=== PATIENT | male | born 1955 | race Caucasian/White ===

== ENCOUNTER 2017-07-20 23:48 | Inpatient (IN) ==
--- NOTE | 2017-07-21 00:02 | Emergency Department Report ---
General Adult HPI - General Stated complaint: numbness around mouth Time Seen by Provider: 07/21/17 00:01 Source: patient, family Mode of arrival: ambulatory Limitations: no limitations - History of Present Illness HPI narrative: 62-year-old male presents to the emergency department with a chief complaint of tingling in the left side of his face. Patient noted onset of symptoms earlier today prior to arrival to the emergency department. Exact time of onset is unknown. Patient has been experiencing tingling/numbness in his left upper extremity last Monday which has resolved. Patient had been asymptomatic since then. Patient did have an MRI of his head performed by his primary care physician on 07/18/2017 which did show a potential ischemic injury. Patient was never hospitalized. Denies any current pain or discomfort. Symptoms have resolved prior to arrival to the emergency department. No other complaints or associated symptoms. He was at home when the symptoms began. - Related Data Home Medications Medication Instructions Recorded Confirmed Fish Oil/[place]-3 Fatty Acids (Fish 1 cap PO DAILY #0 11/10/11 07/21/17 Oil 1,000 Mg Capsule) Saw [place] 80 mg PO DAILY #0 11/10/11 07/21/17 Previous Rx's Medication Instructions Recorded Prilosec (Omeprazole) 20 mg 20 mg PO DAILY #60 cap 05/12/17 capsule,delayed release apixaban (Eliquis)5 mg tablet 5 mg PO BID #60 tab 05/12/17 Wellbutrin XL (bupropion HCl XL) 150 mg PO QAM #90 tab 06/20/17 150 mg 24 hr tablet Cipro (ciprofloxacin) 500 mg tablet 500 mg PO Q12H #60 tab 06/26/17 Lipitor (atorvastatin) 20 mg tablet 20 mg PO DAILY #30 tab 07/17/17 Zestoretic (lisinopril 20 1 tab PO DAILY #90 tab 07/17/17 mg-hydrochlorothiazide 25 mg) tablet aspirin 81 mg tablet,delayed 81 mg PO DAILY #30 tab 07/17/17 release metoprolol tartrate 25 mg tablet 25 mg PO BID #60 tab 07/19/17 Allergies Allergy/AdvReac Type Severity Reaction Status Date / Time No Known Allergies Allergy Unverified 07/17/17 15:24 Review of Systems Constitutional: Denies: fever, chills Eyes: Denies: eye pain, vision change ENT: Denies: ear pain, throat pain Cardiovascular: Denies: chest pain, palpitations Respiratory: Denies: cough, dyspnea Gastrointestinal: Denies: abdominal pain, nausea, vomiting, diarrhea Genitourinary: Denies: urgency, dysuria Musculoskeletal: Denies: back pain, arthralgia Integumentary: Denies: erythema, rash Neurological: Reports: paresthesias (resolved). Denies: headache, numbness Psychiatric: Denies: anxiety, depression Endocrine: Denies: fatigue, heat or cold intolerance Hematological/Lymphatic: Denies: easy bruising, lymphadenopathy Allergic/Immunologic: Denies: urticaria, itchy eyes PFSH Patient Stated Medical History Transient Ischemic Attacks ( Yes TIA) Hypertension Yes Gastroesophageal Reflux Yes Disease Clotting Problems Yes: blood clot , on eloquis Osteoarthritis Yes Depression Yes Clinic Medical History (Last Updated 06/20/17 @ 08:47 by Shahla Mason APRN ) Peripheral neuropathy (Chronic Medical) LLE Recurrent deep vein thrombosis of left lower extremity (Chronic Medical) Benign hypertension (Chronic Medical) Dysthymia (Chronic Medical) Depression (Chronic Medical) GERD (gastroesophageal reflux disease) (Chronic Medical) DVT (deep venous thrombosis) (Resolved Medical) Left calcaneal fracture (Resolved Medical) Surgical History: Fracture repair left heel Family History: Family History (Last Reviewed 05/12/17 @ 11:20 by CATHRYN Devine) Mother , Age 64 Cancer Sister HIV (human immunodeficiency virus infection) Paternal Uncle , Commited suicide No problems noted. - Social History Smoking status: Never smoker Substance use type: does not use Alcohol intake frequency: does not drink Physical Exam - Limitations Limitations: no limitations - General General appearance: alert, in no apparent distress - Normal Exams: Head:: Normocephalic without trauma Eyes:: Pupils are PERRLA w/ EOMI, No scleral icterus, irritation, or foreign bodies noted ENMT:: No facial trauma, nasal exudates, pharyngeal erythema, or exudates are noted Dental: No fractured, loose, or missing teeth noted Neck:: Full range of motion, without adenopathy, JVD, bruits or thyromegaly Chest/Respirations:: Clear all rodriguez, with good airflow, and symmetry bilaterally Cardiovascular:: Regular rate and rhythm, without murmur or gallop, Pulses 2+ all extremities, capillary refill, <2 seconds all extremities Abdomen:: Bowel sounds positive, soft, non-tender, non-distended, no hepatosplenomegaly, masses or bruits noted Lymphatic:: No lymphadenopathy, or lymphedema noted Musculoskeletal:: No tenderness, or deformity noted, good range of motion, all extremities Integumentary:: No rashes, hives, or bruising noted, hair and nails, without abnormality Neurological:: Patient is alert (Alert and oriented 3. CN 2-12 intact. Normal strength. Normal motor. Normal coordination. Normal speech. Normal sensation. Reflexes 2/4 in all extremities. Absent Babinski bilaterally. Normal gait. No focal neurologic deficit. Unremarkable neurologic exam.), and oriented, cranial nerves, motor/sensory/cerebellar, exams w/o gross deficits, to observation Psychiatric:: Patient exhibits, appropriate attention, emotion and affect Course Vital Signs Temperature 98.7 F 07/20/17 23:48 Pulse Rate 64 07/20/17 23:48 Respiratory Rate 20 07/20/17 23:48 Blood Pressure 149/87 H 07/20/17 23:48 Pulse Oximetry 98 07/20/17 23:48 Temperature 97.7 F 07/21/17 03:38 Pulse Rate 57 L 07/21/17 03:38 Respiratory Rate 18 07/21/17 03:38 Blood Pressure 123/73 07/21/17 03:38 Pulse Oximetry 97 07/21/17 03:38 Medical Decision Making - [facility] Narrative Medical decision making narrative: Labs / imaging were discussed in detail with the patient and questions are answered. Patient is currently anticoagulated on Xarelto has taken a baby aspirin today. Patient is discussed with neurology on-call Dr. Tatum who recommends admission to the hospitalist service and consultation with neurology. Patient is in agreement with the current plan of management. Patient is admitted to the service of the hospitalist after discussion with Dr. Waldrop who agrees to accept the patient to his service. No further orders from accepting or consulting physicians who were in agreement with the current plan of management. Patient is not a TPA candidate as he is anticoagulated and his exact time of onset of symptoms is unknown. He also has a low NIH. No confirmed stroke is present. - Differential Diagnosis TIA, CVA, UTI, Metabolic disorder - Lab Data Result diagrams: 07/21/17 00:38 07/21/17 00:38 Lab Results 07/21/17 07/21/17 07/21/17 Range/Units 00:24 00:38 00:38 WBC 6.8 (4.5-11.0) T/MM3 RBC 5.10 (4.50-5.90) M/MM3 Hgb 15.3 (13.5-17.5) GM/DL Hct 46.5 (41-53) % MCV 91.2 (80-100) UM3 MCH 30.0 (26-34) UUG MCHC 32.9 (31-37) GM/DL RDW Std Deviation 44.6 (36.9-50.2) FL Plt Count 235 (130-400) T/MM3 MPV 9.9 (9.4-12.4) UM3 Immature Gran % (Auto) 0.1 (0.0-0.5) % Neut % (Auto) 43.8 (33-66) % Lymph % (Auto) 41.0 (23-45) % [place] % (Auto) 10.2 H (0-9.0) % Eos % (Auto) 4.0 (0-4) % Baso % (Auto) 0.9 (0-2) % Neut # (Auto) 3.0 (1.8-7.7) T/MM3 Lymph # (Auto) 2.8 (1-4.8) T/MM3 [place] # (Auto) 0.7 (0-0.8) T/MM3 Eos # (Auto) 0.3 (0-0.5) T/MM3 Baso # (Auto) 0.1 (0-0.2) T/MM3 Abs Immat Gran (auto) 0.01 (0.00-0.03) T/MM3 INR 1.24 H (0.99-1.21) APTT 36.7 H (24-36) SEC Turbidity (0-20) Sodium (134-144) MEQ/L Potassium (3.6-5) MEQ/L Chloride (98-107) MEQ/L Carbon Dioxide (22-30) MEQ/L Anion Gap (5-15) MEQ/L BUN (9-20) MG/DL Creatinine (0.8-1.5) MG/DL GFR Calculation BUN/Creatinine Ratio (6-26) RATIO Glucose (75-110) MG/DL Calculated Osmolality (261-280) MOSM/KG Calcium (8.4-10.2) MG/DL Total Bilirubin (0.20-1.30) MG/DL Icterus Index (0-7) AST (17-59) U/L ALT (21-72) U/L Alkaline Phosphatase (38-126) U/L Troponin I (0-0.12) ng/ml Total Protein (6.3-8.2) G/DL Albumin (3.5-5.0) G/DL Globulin (2.4-3.6) G/DL Albumin/Globulin Ratio (1.1-2.2) RATIO Specimen Hemolysis (0-25) Ur Collection Type Urine, void-cc/notcc Urine Color Yellow (YELLOW) Urine Clarity Clear Urine pH 7.0 (5.0-8.0) Ur Specific [place] 1.025 (1.015-1.025) Urine Protein Negative (NEGATIVE) Urine Glucose (UA) Negative (NEGATIVE) Urine Ketones Negative (NEGATIVE) Urine Occult Blood Negative (NEGATIVE) Urine Nitrate Negative (NEGATIVE) Urine Bilirubin Negative (NEGATIVE) Urine Urobilinogen 0.2 (NORMAL) EU/DL Ur Leukocyte Esterase Negative (NEGATIVE) Urinalysis Comment Microscopic not ind. 07/21/17 Range/Units 00:38 WBC (4.5-11.0) T/MM3 RBC (4.50-5.90) M/MM3 Hgb (13.5-17.5) GM/DL Hct (41-53) % MCV (80-100) UM3 MCH (26-34) UUG MCHC (31-37) GM/DL RDW Std Deviation (36.9-50.2) FL Plt Count (130-400) T/MM3 MPV (9.4-12.4) UM3 Immature Gran % (Auto) (0.0-0.5) % Neut % (Auto) (33-66) % Lymph % (Auto) (23-45) % [place] % (Auto) (0-9.0) % Eos % (Auto) (0-4) % Baso % (Auto) (0-2) % Neut # (Auto) (1.8-7.7) T/MM3 Lymph # (Auto) (1-4.8) T/MM3 [place] # (Auto) (0-0.8) T/MM3 Eos # (Auto) (0-0.5) T/MM3 Baso # (Auto) (0-0.2) T/MM3 Abs Immat Gran (auto) (0.00-0.03) T/MM3 INR (0.99-1.21) APTT (24-36) SEC Turbidity < 20 (0-20) Sodium 145 H (134-144) MEQ/L Potassium 3.9 (3.6-5) MEQ/L Chloride 108 H (98-107) MEQ/L Carbon Dioxide 26 (22-30) MEQ/L Anion Gap 11 (5-15) MEQ/L BUN 22.0 H (9-20) MG/DL Creatinine 1.0 (0.8-1.5) MG/DL GFR Calculation 75 BUN/Creatinine Ratio 22 (6-26) RATIO Glucose 118 H (75-110) MG/DL Calculated Osmolality 283 H (261-280) MOSM/KG Calcium 9.4 (8.4-10.2) MG/DL Total Bilirubin 0.50 (0.20-1.30) MG/DL Icterus Index < 2 (0-7) AST 22 (17-59) U/L ALT 27 (21-72) U/L Alkaline Phosphatase 46 (38-126) U/L Troponin I < 0.012 (0-0.12) ng/ml Total Protein 7.1 (6.3-8.2) G/DL Albumin 4.0 (3.5-5.0) G/DL Globulin 3.1 (2.4-3.6) G/DL Albumin/Globulin Ratio 1.3 (1.1-2.2) RATIO Specimen Hemolysis < 15 (0-25) Ur Collection Type Urine Color (YELLOW) Urine Clarity Urine pH (5.0-8.0) Ur Specific [place] (1.015-1.025) Urine Protein (NEGATIVE) Urine Glucose (UA) (NEGATIVE) Urine Ketones (NEGATIVE) Urine Occult Blood (NEGATIVE) Urine Nitrate (NEGATIVE) Urine Bilirubin (NEGATIVE) Urine Urobilinogen (NORMAL) EU/DL Ur Leukocyte Esterase (NEGATIVE) Urinalysis Comment - Radiology Data CXR - No acute processes. CT HEAD - no acute processes. Disposition Clinical Impression: transcient ischemic attack Disposition: To [facility] Acute Care Condition: Stable Time of Disposition: 02:00 (Admit. Dr. Waldrop. ) - Seen By: physician
[2017-07-21] MEDS ORDERED: SALINE FLUSH 10ml SYRINGE IVF PRN (00:23)
[2017-07-21 03:47] VITALS: BMI 27.1
[2017-07-21] MEDS ORDERED: ONDANSETRON 4 MG/2 ML INJECTION IVP PRN (03:55)
[2017-07-21] MEDS ORDERED: ACETAMINOPHEN 325 MG TABLET PO PRN (03:56)
[2017-07-21 04:07] VITALS: O2SAT 97
[2017-07-21] MEDS: MAG-AL + SIM ORAL LIQUID 30ml PO SCH ×2 (04:48→09:39)
--- NOTE | 2017-07-21 05:03 | History & Physical Report ---
History of Present Illness Date: 07/21/17 Chief complaint: left facial numbness HPI: This is a 62 y/o male who 7 days ago had an episode of transient left hand weakness (right handed). he was unable to hold a glass while doing dishes. The patient also had some expressive aphasia. Symptoms lasted briefly (less than 5 minutes) The patient has a history of DVT left leg and is on eliquis for this. The patient contacted his PCP who saw the patient this Monday. An MRI of the brain is reported to have demonstrated a CVA. The patient had aspirin added to his regimen. The patient tonight had onset of paresthesia to the left side of his face. No other neurologic symptoms were described. Again symptoms were transient in nature. In the ED the patient's NIH score is 0. Repeat CT head is unremarkable for an acute process. Neurology was contacted and r/c admission and would see the patient in consult. The patient reports mild headache associated with his symptoms, no vision changes, no difficulty swallowing. no weakness to his arms or legs and no troubles with his balance. The patient has had no fever, chills or sweats, no respiratory sx, no cardiac sx, At this time per neurology r/c the patient is to be admitted locally. Review of Systems All systems PM: 10-point ROS was reviewed, no additional remarkable complaints except Past Medical History Patient Stated Medical History Transient Ischemic Attacks ( Yes TIA) Hypertension Yes Gastroesophageal Reflux Yes Disease Clotting Problems Yes: blood clot , on eloquis Osteoarthritis Yes Depression Yes Clinic Medical History (Last Updated 06/20/17 @ 08:47 by Shahla Mason APRN ) Peripheral neuropathy (Chronic Medical) LLE Recurrent deep vein thrombosis of left lower extremity (Chronic Medical) Benign hypertension (Chronic Medical) Dysthymia (Chronic Medical) Depression (Chronic Medical) GERD (gastroesophageal reflux disease) (Chronic Medical) DVT (deep venous thrombosis) (Resolved Medical) Left calcaneal fracture (Resolved Medical) Surgical History: Fracture repair left heel Family History: Family History (Last Reviewed 05/12/17 @ 11:20 by CATHRYN Devine) Mother , Age 64 Cancer Sister HIV (human immunodeficiency virus infection) Paternal Uncle , Commited suicide No problems noted. Family History Updates: father alive after intracerebral bleed, mother from lymphoma - Social History Smoking status: Never smoker Substance use type: does not use Alcohol intake: never Alcohol intake frequency: does not drink Housing: house Household members: spouse Current occupational status: employed Current occupational exposures/hazards: No Does patient use chewing tobacco?: No Current residence: Apartment/Private Home Medications Home Medications Medication Instructions Recorded Confirmed Type Fish Oil/[place]-3 Fatty Acids (Fish 1 cap PO DAILY #0 11/10/11 07/21/17 History Oil 1,000 Mg Capsule) Saw [place] 80 mg PO DAILY #0 11/10/11 07/21/17 History Ciprofloxacin HCl [Ciprofloxacin 500 mg PO Q12H 07/21/17 07/21/17 History HCl] Allergies Allergy/AdvReac Type Severity Reaction Status Date / Time No Known Allergies Allergy Unverified 07/17/17 15:24 Exam Vital Signs: Temperature 97.7 F 07/21/17 03:38 Pulse Rate 57 L 07/21/17 03:40 Respiratory Rate 18 07/21/17 03:38 Blood Pressure 123/73 07/21/17 03:38 Pulse Oximetry 97 07/21/17 03:38 Telemetry Rhythm: Sinus Rhythm Height/Weight/BMI: Height 1.73 m Weight 81 kg Body Mass Index 27.1 - Constitutional Present: no acute distress, well nourished, well developed, obese, cooperative - Routine HEENT Exam Head: Present: normocephalic, atraumatic Eye: Present: EOMI, PERRL, conjunctivae pink. Absent: scleral injection ENT: Present: mucous membranes moist - Routine Neck Exam Present: supple, full ROM. Absent: JVD - Routine Respiratory Exam Present: CTA bilaterally. Absent: rales, wheezes - Routine Cardiovascular Exam Present: RRR, S1, S2, no murmur. Absent: gallop, rubs - Routine Abdominal Exam Present: soft, normoactive bowel sounds, non distended. Absent: tenderness - Routine Extremities Exam Present: no edema, full ROM. Absent: cyanosis, clubbing - Routine Back/Spine/Pelvis Exam Back/Spine: Present: full ROM - Routine Skin Exam Present: intact - Routine Neurological Exam Present: alert, CN II-XII intact, normal reflexes, moving all extremities, normal tone, vision grossly intact, hearing grossly intact, normal speech. Absent: sensory deficit, motor deficit, altered mental status, abnormal gait, hemineglect, fasciculations, facial asymmetry, tremors - Routine Psychiatric Exam Present: normal affect, normal thought process Results - Labs CBC & Chem 7: 07/21/17 00:38 07/21/17 00:38 Assessment and Plan (1) TIA (transient ischemic attack) Current visit: No Status: Chronic (2) Recurrent deep vein thrombosis of left lower extremity Current visit: No Status: Chronic (3) Benign hypertension Current visit: No Status: Chronic (4) Dyspepsia Problem details: Continue omeprazole as previous. Current visit: No Status: Chronic Assessment and Plan: 1. CVA acute POA: patient with MRI defined CVA recently. Now with transient symptoms again. on eliquis. aspirin added this week. Will add statin. neuro checks. Neurology contacted and r/c local admission. Further recommendations to follow, PT and OTordered. Patient reports cartoid normal. echo ordered today. 2. previous DVT left leg: on eliquis. with recurrent stroke type sx may need to change to coumadin. defer to neurology. 3. DVT ppx; SCD, eliquis 4. gastric ppx; PPI DVT Prophylaxis: SCD's, Eliquis GI Prophylaxis: Protonix Resuscitation Status: Full Code - Time spent with patient Time with patient PN: 30 minutes - Physician Narrative Physician: Sarah Palafox MD Narrative: Date: 07/21/17 Time: 0 Dr. Waldrop's note reviewed. Mr. Martinez interviewed and examined. CC: Facial numbness HPI: Mr. Martinez is a 62-year-old male with recent diagnosis of acute multifocal right MCA territory ischemic stroke after he presented with transient left hand weakness occurring 07/14. His thinks he may have also had very minor left facial droop at that time and patient describes perioral numbness. Symptoms lasted several minutes; office records indicate symptoms may have persisted overnight. This was also noted brief episodes of garbled speech lasting only a couple minutes at a time over a 24-hour time period the day of the left hand weakness and the following day. Since that time the patient reports having difficulty seeing all the letters and words but denies other neurological symptoms including left lower extremity weakness, any right-sided symptoms, double vision, or difficulty chewing and swallowing. Yesterday evening he reports having an intense feeling of pressure in his right wrist, tightness in the lower abdomen, and sensation that his heart was pounding but not rapid when he prepared to go to bed last night. He denied chest pain or tightness in his chest. In route to the emergency room he developed numbness/tingling in the left side of his face without additional neurological symptoms. Blood pressure in the emergency room was 149/87 and neurological exam was normal. Case was reviewed with Dr. Tatum and hospitalization was recommended for follow-up neurological evaluation. Prior workup included the MRI done on 07/18, carotid Doppler on 07/18 which demonstrated moderate calcific plaque in the left carotid pulse and proximal ICA with less than 20% reduction in carotid diameters bilaterally. He had an echocardiogram completed yesterday at Dr. Moon's office in [place] and is scheduled for follow-up appointments with Dr. Moon and Dr. Ramiro Stewart. This morning he feels back to normal and there is no residual numbness in the face nor is there weakness in the hand. PH/SH/FH: agree with that recorded above. Recent DVT diagnosed 05/12/17 following a car trip to [place] [facility]. ROS: 10 point review as described by Dr. Waldrop above with additions of recent prostatitis and bronchitis being treated with current antibiotics-symptoms have resolved. EXAM: General-NAD, alert, fluent speech; 96.8 129/85 60 97% room air HEENT-PERRL, EOMI without nystagmus, conjunctiva clear, sclera anicteric, conjugate gaze, facial structures symmetric, oropharynx clear, neck supple and without adenopathy Lungs-respirations nonlabored, good airflow compressed sounds clear Cardiac-regular rhythm, S1-S2, no murmur appreciated Abd-soft, nontender, without palpable mass, bowel sounds present Ext-without edema Skin-without rash or evidence of wounds Neuro-cranial nerves 3-12 intact, sensation intact to light touch across all 3 distributions the face bilaterally; training manager 5/5 bilaterally, no drift to the upper extremities, deltoids 5/5 on the right, 4/5 on the left with breakaway strength (patient reports left shoulder pain/injury), 5/5 proximal and distal power bilateral lower extremities, no tremors, motor tone normal; sensation intact to light touch proximally and distally upper and lower extremities Psych-slightly anxious, calm, cooperative DATA: INR 1.24, CBC, chemistries unremarkable, total cholesterol 169, triglycerides 226, LDL 85.8, HDL 37; TSH 2.[address] head reviewed by myself and reveals no acute intracranial events, right frontal sinusitis is incidentally report ordered by radiology. Chest x-ray reviewed by myself-NAD EKG-sinus rhythm, normal waveforms. MRI head 07/18/17: Multiple small foci of acute diffusion restriction in the right posterior temporal lobe. There are also small foci of acute diffusion restriction in the right frontal and parietal lobes. These are all in the MCA territory. These lesions have expected T2/hyperintensity The ventricles are of normal size, shape, and contour for the patient's age. The brain stem, cerebellum, and cerebral hemispheres otherwise have a normal morphologic appearance as well as MR signal intensity on all pulse sequences. Following intravenous administration of contrast, there are perfusion changes at the areas of right temporal infarct likely due to blood brain barrier breakdown. There are no areas of restricted diffusion to suggest an acute infarct. There is no evidence of an intracranial mass lesion, intracranial hemorrhage, or hydrocephalus. The visualized portions of the orbits, calvarium, and skull base demonstrate no significant abnormality.] Old sinus mucosal disease. IMPRESSION: Acute multifocal small right MCA territory infarcts. A/P: Embolic strokes, recent-stuttering symptoms Hypertension, chronic, well controlled Hyperlipidemia DVT, recurrent GERD Hypernatremia, borderline Mr. Martinez has had stuttering symptoms over the past week after presenting with left arm weakness with MRI demonstrating multiple small ischemic strokes in the right MCA distribution suggesting cardioembolic origin. Carotid Dopplers suggested calcific plaque in the left carotid bulb but did not describe irregularity in the right carotid. Echocardiogram has been obtained, results unknown. He has pending appointments with both cardiology and vascular surgery. Aspirin has been added to his regimen recently in addition to a high potent statin. With recent DVT and events in both vascular and arterial beds will have anticardiolipin Ab drawn although this seems remote possibility. Additionally paradoxic emboli from venous to arterial system via cardiac shunt will need to be entertained and patient may require JESSICA in the near future for further evaluation for possible embolic sources. Telemetry today reveals only sinus rhythm/sinus bradycardia. Event recorder could be considered although patient is already anticoagulated appropriately. At present I don't believe change in medications is needed beyond increasing statin to 40 mg of atorvastatin for plaque stabilization. Findings discussed with Dr. Tatum. He suggested possible maurice-infarct seizure activity and EEG can be obtained as an outpatient if ongoing symptoms. Finally the patient has some component of anxiety with heightened awareness of all symptoms noting wrist pain, abdominal pain, and palpitations are what really prompted decision to go to the ER last night and he only developed facial numbness while driving to the ER. He acknowledges increased anxiety regarding uncertainty of recent diagnosis and due to of a high school friend who had a heart attack recently. Refer back to PCP for consideration of SSRI or alternate therapy. Stable for discharge-to follow up with Dr. Tatum in 2 weeks, Dr. Moon as scheduled, Dr. Gil as scheduled, Shahla Mason APRN early next week. Continue aspirin, Eliquis at current doses; increase atorvastatin to 40 mg daily. Hospital Course Summary Disclaimer: The visit summary below is not to be considered part of the above Progress Note.
--- NOTE | 2017-07-21 07:54 | XRay Report ---
Indication: facial tingling PROCEDURE: XR chest 1V: Encounter: Initial Comparison: May 17, 2017 Findings: The lungs are stable in appearance without new focal airspace consolidation. There is no pleural effusion or pneumothorax. The heart size, pulmonary vascularity and mediastinal contours are unchanged. IMPRESSION: Stable appearance of the chest without acute cardiopulmonary disease. .
--- NOTE | 2017-07-21 07:54 | CT Scan Report ---
Indication: facial tingling PROCEDURE: CT head/brain wo con: Encounter: Initial Comparison: None Technique: Axial CT images through the head were performed without contrast. Iterative Reconstruction dose reducing technique was utilized. FINDINGS: The ventricles are of normal size, shape, and contour for the patient's age. The brainstem, cerebellum, and cerebral hemispheres have a normal morphology and CT attenuation. There is no evidence of midline displacement. No hemorrhage, signs of acute territorial stroke, mass effect, mass lesions, or edema is evident. The visualized portions of the skull base, midface, and calvarium demonstrate no abnormality. Prior sinus surgeries with severe mucosal thickening in the right frontal sinus.. The tympanic and mastoid cavities appear normal. IMPRESSION: No acute intracranial abnormality or hemorrhage. Acute right frontal sinusitis. There is a preliminary report by [facility]. .
[2017-07-21 07:57] VITALS: BP 129/85; RESP 16; TEMP 96.8
[2017-07-21] MEDS ORDERED: SALINE FLUSH 10ml SYRINGE ONE (08:23)
[2017-07-21] MEDS ORDERED: BUPROPION 150 MG PO SCH (09:00)
[2017-07-21] MEDS ORDERED: LISINOPRIL PO SCH (09:00)
[2017-07-21] MEDS ORDERED: HCTZ PO SCH (09:00)
[2017-07-21] MEDS ORDERED: ASPIRIN *EC* 81 MG TABLET PO SCH ×2 (09:00)
[2017-07-21] MEDS ORDERED: --POM--APIXABAN 5 MG TABLET PO SCH ×2 (09:00→21:00)
[2017-07-21] MEDS ORDERED: PANTOPRAZOLE 40 MG INJECTION IVP SCH (09:00)
[2017-07-21] MEDS ORDERED: --POM--METOPROLOL TARTRATE 25mg TABLET PO SCH ×3 (09:30→17:30)
--- NOTE | 2017-07-21 10:52 | Consultation ---
DATE OF CONSULTATION 07/21/[address] Palafox CHIEF COMPLAINT Left facial numbness. HISTORY OF PRESENT ILLNESS The patient is a 62-year-old male with history of hypertension and hyperlipidemia. The patient had a stroke a week ago. This manifested as left upper extremity numbness, weakness and coordination problem. The patient had an MRI of the brain that showed an acute ischemic stroke affecting the right parietal head region. The patient has been taking Eliquis for DVT prophylaxis. Aspirin was added to his regimen and his symptoms did resolve within a few hours. The patient did well until last night when he had a new episode of left facial and numbness affecting the left maxillary area and the area around his mouth. Those symptoms lasted for a few seconds to a few minutes and he has been fine since. The patient had a CT scan of the head in the emergency room that showed no acute abnormalities or hemorrhage. His blood pressure has been in the upper range of normal. This has improved since then and his last blood pressure was 129/85. The patient denies having any and new symptoms since yesterday. He has had some mild headache earlier today. On physical examination the patient was awake, alert, oriented x 3. Pupils were round, reactive and equal. Extraocular muscles were intact. Visual field was full, Speech was fluent. Facial motor and sensory were normal. Motor examination in the upper and lower extremities was 5/5. Sensory examination was slightly diminished in the left upper extremity compared to the right. Deep tendon reflexes were 2/4. Plantar reflexes were in flexion bilaterally. Coordination for [id number] was normal. ASSESSMENT Acute ischemic stroke affecting the right parietal head region. This has been stable on Eliquis and aspirin. The new symptoms the patient had yesterday can be the result of stroke expansion or brain healing after the stroke. PLAN 1. Continue Eliquis and aspirin for stroke prevention. 2. Optimize treatment for hypertension and hyperlipidemia. 3. Watch for any new symptoms of numbness and tingling. Those can represent simple partial seizure after stroke. 4. Provide good fluid intake. The patient can be discharged later today if he has no new symptoms. He can follow up with me within two weeks. CHRIS
[2017-07-21 11:12] VITALS: PULSE 63
[2017-07-21] MEDS ORDERED: --POM--OMEPRAZOLE 20 MG CAPSULE PO SCH (11:15)
--- NOTE | 2017-07-21 12:34 | Discharge Summary ---
Discharge Summary- Blank Discharge Summary: Mr. Martinez was hospitalized overnight after he developed left facial numbness a week after multiple small strokes were identified by MRI in the right MCA distribution following a brief episode of left hand weakness. Head CT was negative for acute neurological events and facial numbness subsided quickly. Telemetry revealed sinus rhythm/sinus bradycardia. He was seen by Dr. Tatum did not feel additional workup was needed at this time. Please refer to admission H&P for details of hospital stay. He is to follow-up with cardiology and vascular surgery as previously scheduled ; echocardiogram was obtained yesterday and results are pending. Atorvastatin increased to 40 mg daily and he remains on aspirin and Eliquis at discharge.
[2017-07-21] MEDS ORDERED: --POM--ATORVASTATIN 20 MG TABLET PO SCH (21:00)
[2017-07-21] MEDS ORDERED: SIMVASTATIN 40 MG TABLET PO SCH (21:00)
[2017-07-22] MEDS ORDERED: --POM--OMEPRAZOLE 20 MG CAPSULE PO SCH (06:30)
[2017-07-22] MEDS ORDERED: BUPROPION 150 MG PO SCH (09:00)
[2017-07-22] MEDS ORDERED: LISINOPRIL PO SCH (09:00)
[2017-07-22] MEDS ORDERED: HCTZ PO SCH (09:00)
== END 2017-07-21 13:25 | disposition home or self-care (01) | DRG 65 ==
LOC: ED 23:48 → MED 07-21 02:04
PROVIDERS: ADMIT Emergency Medicine; ATTEND Internal Medicine